=== PATIENT | male | born 1985 | race African-American/Black ===

== ENCOUNTER 2024-10-14 16:30 | Emergency (ER) | payer BC ==
[2024-10-14 17:06] LABS: Absolute Eosinophils 0.1 K/uL (0-0.5); Absolute Lymphocytes (CBC) 1.6 K/uL (0.7-4.9); Absolute Monocytes 0.4 K/uL (0.1-1.3); Absolute Neutrophil 1.5 K/uL (1.8-8.0); Basophils % 0.7 % (0-1.3); Eosinophils % 1.5 % (0-4.4); Hematocrit 42.9 % (39.6-49.0); Hemoglobin 14.1 g/dL (13.6-17.9); Lymphocytes % 44.3 % (15.3-44.8); MCH 29.3 pg (27.0-35.0); MCHC 32.8 g/dL (32.0-36.0); MCV 89.4 fL (80-100); MPV 7.5 fL (7.6-11.3); Monocytes % 10.6 % (3.3-12.3); Neutrophils % 42.9 % (41.7-73.7); Nucleated Red Blood Cells % 0.2 % (0-0); Platelets 214 thou/uL (152-406); RBC Red Blood Cell Count 4.81 M/uL (4.33-5.43); Red Cell Distribution Width 13.6 % (12.1-15.2)
[2024-10-14 17:24] LABS: Albumin/Globulin Ratio 1.1 (1.1-1.8); Anion Gap 5.9 mEq/L (5.0-15.0); Bilirubin Total 0.5 mg/dL (0.2-1.0); Globulin 3.8 g/dL (2.3-3.5); Potassium 3.9 mEq/L (3.5-5.1); Protein, Total 7.8 g/dL (6.4-8.2)
--- NOTE | 2024-10-14 17:34 | ER ---
Nurse's Notes [facility] Name: Ezra Leblanc Age: 38 yrs Sex: Male : 1985 Arrival Date: 10/14/2024 Time: 16:30 Bed IW1 Private MD: Diagnosis: Decreased white blood cell count, unspecified Presentation: 10/14 16:46 Chief complaint: Patient states: i had labs drawn at my physical and they said my WBC iw count was low , I can't get in to my PCP for 2 weeks. Coronavirus screen: At this time, the client does not indicate any symptoms associated with coronavirus-19. Ebola Screen: No symptoms or risks identified at this time. Initial Sepsis Screen: Does the patient meet any 2 criteria? No. Patient's initial sepsis screen is negative. Does the patient have a suspected source of infection? No. Patient's initial sepsis screen is negative. Risk Assessment: Do you want to hurt yourself or someone else? Patient reports no desire to harm self or others. Onset of symptoms was October 14, 2024. 16:46 Method Of Arrival: Ambulatory iw 16:46 Acuity: SHAYNE 3 iw Historical: - Allergies: 16:47 No Known Allergies; iw - Home Meds: 16:47 Linzess oral as needed for constipation predominant irritable bowel syndrome [Active]; iw - PMHx: 16:47 constipation; iw - PSHx: 16:47 None; iw - Immunization history:: Adult Immunizations up to date. - Infectious Disease History:: Denies. - Social history:: Smoking status: Patient denies any tobacco usage or history of. Screenin:56 [facility] ED Fall Risk Assessment (Adult) History of falling in the last 3 months, iw including since admission No falls in past 3 months (0 pts) Confusion or Disorientation No (0 pts) Intoxicated or Sedated No (0 pts) Impaired Gait No (0 pts) Mobility Assist Device Used No (0 pt) Altered Elimination No (0 pt) Score/Fall Risk Level 0 - 2 = Low Risk Oriented to surroundings, Maintained a safe environment. Abuse screen: Denies threats or abuse. Denies injuries from another. Nutritional screening: No deficits noted. Tuberculosis screening: No symptoms or risk factors identified. Assessment: 16:55 General: Appears in no apparent distress. Behavior is calm, cooperative. Pain: Denies iw pain. Neuro: Level of Consciousness is awake, alert, obeys commands, Oriented to person, place, time, situation, Moves all extremities. Full function. Cardiovascular: Patient's skin is warm and dry. Respiratory: Respiratory effort is even, unlabored, Respiratory pattern is regular, symmetrical. Derm: Skin is intact, is healthy with good turgor. Musculoskeletal: Range of motion: intact in all extremities. Vital Signs: 16:46 BP 148 / 92; Pulse 79; Resp 16; Temp 97.2; Pulse Ox 99% ; Weight 83.91 kg; Height 6 ft. iw 0 in. ; Pain 5/10; 16:46 Body Mass Index 25.09 (83.91 kg, 182.88 cm) iw 16:46 Pain Scale: Adult iw ED Course: 16:32 Patient arrived in ED. im 16:40 Dona Coffey FNP-C is [facility]. kb 16:40 Justus Ureña MD is Attending Physician. kb 16:47 Triage completed. iw 16:48 Arm band placed on. iw 16:55 Patient has correct armband on for positive identification. Provided Education on: . iw 16:55 Initial lab(s) drawn, by me, sent to lab. Inserted saline lock: 20 gauge in right iw antecubital area, using aseptic technique. Blood collected. Flushed with 10 mL NS. 17:34 No provider procedures requiring assistance completed. IV discontinued, intact, iw bleeding controlled, No redness/swelling at site. Pressure dressing applied. 17:39 Sherice Alejandra, RN is Primary Nurse. iw Administered Medications: No medications were administered Medication: 16:56 VIS not applicable for this client. iw Outcome: 17:34 Discharge ordered by . kb 17:38 Discharged to home ambulatory, iw 17:38 Condition: good 17:38 Discharge instructions given to patient, Instructed on discharge instructions, 17:39 Patient left the ED. iw Signatures: Dona Coffey FNP-C FNP-Sherice Lopez, RN RN iw Irma Dash im Corrections: (The following items were deleted from the chart) 16:47 16:46 BP 148 / 92; Pulse 79bpm; Resp 16bpm; Temp 97.2F; iw iw
--- NOTE | 2024-10-14 17:34 | EDPHYS ---
Physician Documentation [facility] Name: Ezra Leblanc Age: 38 yrs Sex: Male : 1985 Arrival Date: 10/14/2024 Time: 16:30 Bed IW1 Private MD: ED Physician Justus Ureña HPI: 10/14 16:49 This 38 yrs old Male presents to ER via Ambulatory with complaints of chills, Abnormal kb Lab Results. 16:59 Pt is a 38 year old male who presents for low WBC count. States he had a work physical kb done last week and his WBC were low. States he made a follow up appt with PCP for this, but wasn't able to get an appt for 2 weeks. States he got off early today so he decided to come in for evaluation. Pt has no complaints, no medical history, no known family history. . Historical: - Allergies: 16:47 No Known Allergies; iw - Home Meds: 16:47 Linzess oral as needed for constipation predominant irritable bowel syndrome [Active]; iw - PMHx: 16:47 constipation; iw - PSHx: 16:47 None; iw - Immunization history:: Adult Immunizations up to date. - Infectious Disease History:: Denies. - Social history:: Smoking status: Patient denies any tobacco usage or history of. ROS: 17:01 Constitutional: As per HPI kb Exam: 17:01 Constitutional: This is a well developed, well nourished patient who is awake, alert, kb and in no acute distress. Head/Face: Normocephalic, atraumatic. ENT: Moist Mucous membranes Cardiovascular: Regular rate Respiratory: Respirations even and unlabored. No increased work of breathing. Talking in full sentences Abdomen/GI: Soft, non-tender. No distention Skin: Warm, dry with normal turgor. Normal color. MS/ Extremity: Pulses equal, no cyanosis. Neurovascular intact. Full, normal range of motion. Neuro: Awake and alert, GCS 15, oriented to person, place, time, and situation. Vital Signs: 16:46 BP 148 / 92; Pulse 79; Resp 16; Temp 97.2; Pulse Ox 99% ; Weight 83.91 kg; Height 6 ft. iw 0 in. ; Pain 5/10; 16:46 Body Mass Index 25.09 (83.91 kg, 182.88 cm) iw 16:46 Pain Scale: Adult iw MDM: 16:41 Medical Screening Exam initiated kb 17:03 Data reviewed: vital signs, nurses notes. kb 17:32 Differential diagnosis: thrombocytopenia, leukopenia, anemia. Counseling: I had a kb detailed discussion with the patient and/or guardian regarding the historical points, exam findings, and any diagnostic results supporting the discharge/admit diagnosis, lab results, the need for outpatient follow up, a family practitioner, to return to the emergency department if symptoms worsen or persist or if there are any questions or concerns that arise at home. 10/14 16:48 Order name: CBC with Diff; Complete Time: 17:09 kb 10/14 16:48 Order name: CMP; Complete Time: 17:26 kb 10/14 16:48 Order name: IV Start; Complete Time: 16:55 kb Administered Medications: No medications were administered Disposition: 20:15 Co-signature as Attending Physician, Justus Ureña MD I reviewed the patient's care rn provided by the Advanced Practice Provider and agree with the diagnosis and treatment plan. Disposition Summary: 10/14/24 17:34 Discharge Ordered Notes: Location: Home kb Condition: Stable kb Diagnosis - Decreased white blood cell count, unspecified kb Followup: kb - With: Private Physician - When: 2 - 3 days - Reason: Recheck today's complaints, Continuance of care, Re-evaluation by your physician Followup: kb - With: Emergency Department - When: As needed - Reason: Worsening of condition Discharge Instructions: - Discharge Summary Sheet kb - Leukopenia kb Forms: - Medication Reconciliation Form kb - Antibiotic Education kb - Prescription Opioid Use kb - Patient Portal Instructions kb - Leadership Thank You Letter kb Signatures: Dispatcher [employer] Dona Jha FNP-C FNP-Sherice Lopez, RN RN Justus Velásquez MD MD rn
[2024-10-14 18:17] VITALS: BP 148/92; TEMP 97.2; O2SAT 99
== END 2024-10-14 17:39 | disposition home or self-care (01) ==
LOC: ER 16:30
DX: D72.819 Decreased white blood cell count, unspecified (principal)
CPT/HCPCS: 36415; 80053; 85025